=== PATIENT | male | born 1945 | race Caucasian/White ===

== ENCOUNTER → 2018-04-18 | Outpatient (CLI) | payer OTHER, BC | LOC: BHFA 10:30 | PROVIDERS: ATTEND Nurse Practitioner Adult Health | DX: I48.91 Unspecified atrial fibrillation (principal) ==

== ENCOUNTER 2018-04-19 14:39 | Day surgery (SDC) | payer OTHER, BC ==
[2018-04-19] MEDS ORDERED: ATROPINE SULFATE 1 MG/10 ML SYR IVP ONE (14:46)
[2018-04-19] MEDS ORDERED: NS 500 ML IV ONE (14:46)
[2018-04-19] MEDS ORDERED: BENZOCAINE UNIT DOSE SPRAY HURRICAINE MM ONE (14:46)
[2018-04-19] MEDS ORDERED: fentaNYL 100 MCG/2 ML INJ IVP ONE (14:46)
[2018-04-19] MEDS ORDERED: MIDAZOLAM 2 MG/2 ML VIAL IVP ONE (14:46)
[2018-04-19 15:28] LABS: INR 1.22 (0.83-1.16); PROTIME(PATIENT) 15.6 SEC (12.0-15.0)
[2018-04-19] MEDS ORDERED: PROPOFOL 200 MG/20 ML VIAL ONE ×2 (15:41)
[2018-04-19] MEDS ORDERED: LIDOCAINE 2% 2 ML INJ ONE (15:42)
--- NOTE | 2018-04-19 15:59 | PDANEPAE ---
ANE Past Medical History - Cardiovascular History Hx Hypertension: No Hx Arrhythmias: Yes Cardiovascular History Comment: A Fib for many years and has been cardioverted many times. - Pulmonary History Hx COPD: No Hx Asthma/Reactive Airway Disease: No Hx Sleep Apnea: No Pulmonary History Comment: Patient denies CHASIDY but suspectes he has CHASIDY - Neurologic History Hx Cerebrovascular Accident: No Hx Seizures: No - Endocrine History Hx Diabetes: No - Renal History Hx Renal Disorders: No - Liver History Hx Hepatic Disorders: No - Neurological & Psychiatric Hx Hx Neurological and Psychiatric Disorders: No - Cancer History Hx Cancer: No Cancer History Comment: Suspected prostate CA but Bx was benign - GI History Hx Gastrointestinal Disorders: No ANE Review of Systems Review of Systems: ANE Patient History - Allergies Allergies/Adverse Reactions: No Known Allergies Allergy (Unverified 01/01/15 11:08) - Smoking Hx Smoking Status: Never smoked ANE Labs/Vital Signs - Labs Result Diagrams: 04/19/18 15:10 ANE Physical Exam - Airway Neck exam: FROM Mallampati Score: Class 2 Mouth exam: normal dental/mouth exam - Pulmonary Pulmonary: no respiratory distress, no rales or rhonchi, clear to auscultation - Cardiovascular Cardiovascular: no murmur, rub, or gallop, irregularly irregular - ASA Status ASA Status: II ANE Anesthesia Plan Anesthesia Plan: MAC
--- NOTE | 2018-04-19 16:07 | PDHPUP ---
History & Physical Update H&P update statement: This history and physical update is based on an assessment of the patient which was completed after admission or registration (within 24 hours), but prior to the surgery/procedure. H&P update: H&P reviewed & patient examined, no change in patient's condition since H&P completed
--- NOTE | 2018-04-19 16:34 | POSTANESTH ---
Post Anesthetic Evaluation Cardiovascular Status: Normal, Stable Respiratory Status: Normal, Stable Level of Consciousness/Mental Status: Can Participate in Eval Pain Control: Adequate, Prn Tx Ordered Nausea/Vomiting Control: Adequate, Prn Tx Ordered Complications Possibly Related to Anesthesia: None Noted
--- NOTE | 2018-04-19 16:59 | CPR ---
DATE OF PROCEDURE: 04/19/2018 PROCEDURE PERFORMED: Transesophageal echocardiogram guided cardioversion. INDICATION FOR PROCEDURE: Symptomatic atrial fibrillation. BRIEF HPI: The patient is a pleasant 72-year-old gentleman with a known history of paroxysmal atrial fibrillation on rate control and anticoagulation strategy. He recently noticed return of atrial fib rillation while traveling in [place]. He did miss an occasional dose of Eliquis during his travels and subsequently has been arranged today for RACHELE guided cardioversion. PROCEDURE: After informed consent was obtained for RACHELE cardioversion and anesthesia, patient had a b ite block put in place. Propofol was infused. Once appropriate level of sedation was achieved, RACHELE probe was passed without incident. RACHELE probe was used to take images of the left atrial appendage in multiple images, including xPlane imaging. There was no evidence of left atrial appendage thrombus. There was spontaneous echo contrast noted within the left atrial appendage, in left atrium, but no thrombus. Patient subsequently underwent direct current cardioversion with a synchronized biphasic shock of 200 joules. He remained in atrial fibrillation. He required 2 further shocks of biphasic synchronized energy at 205 joules to return to sinus bradycardia at 40 beats per minute. Currently at the time of dictation, he is in sinus bradycardia at 40 beats per minute. He is waking from anesthesia. PLAN: 1. We will continue to monitor patient. 2. Patient remain on current medical therapy. 3. Patient is scheduled for followup with Dr. Faustino Vera. /[id number]/MODL
--- NOTE | 2018-04-19 21:24 | CPEKG ---
Test Reason : OPEN Blood Pressure : / mmHG Vent. Rate : 059 BPM Atrial Rate : 000 BPM P-R Int : 182 ms QRS Dur : 097 ms QT Int : 407 ms P-R-T Axes : 000 -52 017 degrees QTc Int : 404 ms Atrial fibrillation Left anterior fascicular block Confirmed by Fabiano Palm ([id number]) on 04/19/2018 9:23:48 PM Referred By: Confirmed By:Fabiano Palm
--- NOTE | 2018-04-21 07:21 | CPEKG ---
Test Reason : Blood Pressure : / mmHG Vent. Rate : 044 BPM Atrial Rate : 044 BPM P-R Int : 195 ms QRS Dur : 098 ms QT Int : 454 ms P-R-T Axes : 023 -48 001 degrees QTc Int : 389 ms Sinus bradycardia with sinus arrhythmia Left anterior fascicular block Probable anteroseptal infarct, old Confirmed by Fabiano Palm ([id number]) on 04/21/2018 7:21:24 AM Referred By: Confirmed By:Fabiano Palm
== END 2018-04-19 18:33 | disposition home or self-care (01) ==
LOC: FCATH 14:39
PROVIDERS: ATTEND Internal Medicine Cardiovascular Disease
PROC: 5A2204Z Restoration of Cardiac Rhythm, Single (ICD-10-PCS; principal; 2018-04-19)
DX: I48.91 Unspecified atrial fibrillation (principal); I34.0 Nonrheumatic mitral (valve) insufficiency; I10 Essential (primary) hypertension
CPT/HCPCS: J0461; J2704

== ENCOUNTER → 2018-05-31 | Outpatient (CLI) | payer OTHER, BC | LOC: BHFA 16:00 | PROVIDERS: ATTEND Internal Medicine Cardiovascular Disease | DX: I48.91 Unspecified atrial fibrillation (principal) ==

== ENCOUNTER → 2018-06-06 | Outpatient (CLI) | payer OTHER, BC | LOC: BHLMT 14:45 | PROVIDERS: ATTEND Internal Medicine Cardiovascular Disease | DX: I48.91 Unspecified atrial fibrillation (principal); I10 Essential (primary) hypertension | CPT/HCPCS: 93306-PO ==

== ENCOUNTER 2018-08-08 10:48 | Day surgery (SDC) | payer OTHER, BC ==
[2018-08-08] MEDS ORDERED: NS 500 ML IV ONE (10:53)
[2018-08-08] MEDS ORDERED: ATROPINE SULFATE 1 MG/10 ML SYR IVP ONE (10:53)
[2018-08-08] MEDS ORDERED: MIDAZOLAM 2 MG/2 ML VIAL IVP ONE (10:53)
[2018-08-08] MEDS ORDERED: fentaNYL 100 MCG/2 ML INJ IVP ONE (10:53)
--- NOTE | 2018-08-08 11:30 | PDANEPAE ---
ANE History of Present Illness a fib ANE Past Medical History - Cardiovascular History Hx Hypertension: No Hx Arrhythmias: Yes Hx Chest Pain: No Hx Coronary Artery / Peripheral Vascular Disease: No Hx CHF / Valvular Disease: No Hx Palpitations: Yes Cardiovascular History Comment: A Fib for many years and has been cardioverted many times. - Pulmonary History Hx COPD: No Hx Asthma/Reactive Airway Disease: No Hx Recent Upper Respiratory Infection: No Hx Oxygen in Use at Home: No Hx Sleep Apnea: No Pulmonary History Comment: Patient denies CHASIDY but suspectes he has CHASIDY - Neurologic History Hx Cerebrovascular Accident: No Hx Seizures: No Hx Dementia: No - Endocrine History Hx Diabetes: No Hypothyroid: No Hyperthyroid: No Obesity: no - Renal History Hx Renal Disorders: No - Liver History Hx Hepatic Disorders: No - Neurological & Psychiatric Hx Hx Neurological and Psychiatric Disorders: No - Cancer History Hx Cancer: No Cancer History Comment: Suspected prostate CA but Bx was benign - GI History GERD: no Hx Gastrointestinal Disorders: No - Surgical History Prior Surgeries: several previous cardioversions ANE Review of Systems Review of systems is: negative Review of Systems: - Exercise capacity METS (RN): 4 METS ANE Patient History - Allergies Allergies/Adverse Reactions: No Known Allergies Allergy (Unverified 01/01/15 11:08) - Home Medications Home medications: home medication list seen and reviewed Home Medications: Acetaminophen [Tylenol Extra Strength] 1,000 mg PO BID 08/08/18 [Last Taken Unknown] Acyclovir 400 mg PO DAILY 08/08/18 [Last Taken Unknown] Allopurinol [Allopurinol 300 MG (RX)] 300 mg PO DAILY 08/08/18 [Last Taken Unknown] Apixaban [Eliquis] 5 mg PO BID 08/08/18 [Last Taken 08/08/18] Atorvastatin Calcium 80 mg PO DAILY 08/08/18 [Last Taken Unknown] Clopidogrel Bisulfate [Plavix] 75 mg PO DAILY 08/08/18 [Last Taken Unknown] Glucosa Alaniz 2Kcl/Chondroitin Alaniz [Glucosamine Chondroitin Caplet] 1 tab PO BID [Last Taken Unknown] Metoprolol Tartrate 25 mg PO BID 08/08/18 [Last Taken Unknown] - NPO status NPO Status: no food or drink >8 hours - Anes Hx Anes Hx: no prior problems - Smoking Hx Smoking Status: Never smoked Marijuana use: No - Alcohol Use Alcohol Use: Rarely - Family Anes Hx Family Anes Hx: none ANE Labs/Vital Signs - Labs Result Diagrams: 08/08/18 11:00 - Vital Signs Height: 182.88 cm Weight: 83.915 kg ANE Physical Exam - Airway Neck exam: FROM Mallampati Score: Class 2 Mouth exam: normal dental/mouth exam - Pulmonary Pulmonary: no respiratory distress, clear to auscultation - Cardiovascular Cardiovascular: regular rate and rhythym, no murmur, rub, or gallop - ASA Status ASA Status: III ANE Anesthesia Plan Anesthesia Plan: GA with mask Total IV Anesthesia: Yes
[2018-08-08 11:43] LABS: INR 1.26 (0.83-1.16); PROTIME(PATIENT) 15.3 SEC (12.0-15.0)
--- NOTE | 2018-08-08 11:55 | PDGENHP ---
History & Physical Chief Complaint: symptomatic afib Relevant Physical Exam: s1s2 irreg cta ao3 Cardiorespiratory Assessment: for cv
--- NOTE | 2018-08-08 11:55 | PDGENHP ---
History & Physical Chief Complaint: Atrial fibrillation History of Present Illness: Symptomatic atrial fibrillation Relevant Physical Exam: General: A&Ox4, no apparent distress. Respiratory: CTA. Cardiac: Irregularly irregular Cardiorespiratory Assessment: Proceed with cardioversion as planned for today. He is not able to say whether he has missed any doses of his anticoagulant, plan for ARCHELE pre-cardioversion.
[2018-08-08] MEDS ORDERED: PROPOFOL/EMULSION 500 MG/50 ML BOTTLE IV ONE (12:11)
--- NOTE | 2018-08-08 12:47 | PDTEE1 ---
RACHELE Cardioversion Procedure Procedure: electrical cardioversion, transesophageal echo Indications: atrial fibrillation Consent: signed and in chart Anticoagulation: eliquis Procedural Details: Pads were placed in anterior-posterior position. RACHELE probe was advanced and standard images obtained. There is no evidence of left atrial or left atrial appendage thrombus. Synchronized cardioversion attempt #1: 200J Results: normal sinus rhythm Conclusions: successful RACHELE cardioversion (Moderate to severe MR. To assess MR with echo in 3 months if remains in NSR.) Patient Problems: Problems Problem Status Onset Atrial fibrillation Acute
[2018-08-08] MEDS ORDERED: NALOXONE HCL 0.4 MG/ML INJ IVP PRN (13:07)
--- NOTE | 2018-08-09 06:36 | ECHO ---
[email or web address] [address] Main: [phone] Fax: Transesophageal Echocardiography Name: ROBERTO SAGE MR#: [id number] Study Date: 08/08/2018 Study Time: 12:24 PM Date of : 1945 Age: 73 year(s) Height: ( ) Weight: ( ) BSA: Gender: Male Examination: RACHELE Indication: prev cardioversion; r/o clot Image Quality: Adequate Contrast: I.V. dose of agitated saline Requested by: Faustino Vera Heart Rate: Rhythm: BP: / Procedure Staff Transportation Clerk: Kezia Montiel [facility] Reading Physician: Faustino Vera MD Requesting Provider: RACHELE Exam Details Contrast: I.V. dose of agitated saline Measurements: Chambers Valvular Assessment AV/MV Valvular Assessment TV/PV Normal Normal Normal Name Value Range Name Value Range Name Value Range Visual EF: 55 % Additional Measurements: Findings: Left Ventricle: Normal size left ventricle. The ejection fraction is visually estimated to be 55 %. Left Atrium: Left atrial enlargement. An agitated saline study was performed and was negative for intracardiac shunting. Spontaneous contrast in the left atrium. No thrombus is noted in the left atrium. Left Atrial Appendage: No thrombus in left appendage. Spontaneous contrast is present in the left atrial appendage. Right Atrium: Right atrial enlargement. Mitral Valve: Moderate to severe mitral regurgitation. Aortic Valve: The aortic valve is tri-leaflet. Trivial to mild aortic valve regurgitation. Patient: ROBERTO SAGE Study Date: 08/08/2018 Page 1 of 2 12:24 PM Tricuspid Valve: Trivial to mild tricuspid valve regurgitation. Pulmonic Valve: There is no pulmonic regurgitation seen. Pericardium: Trivial pericardial effusion. l1n (No Signature Object) Patient: ROBERTO SAGE Study Date: 08/08/2018 Page 2 of 2 12:24 PM [id number]
--- NOTE | 2018-08-14 16:31 | CPEKG ---
Test Reason : OPEN Blood Pressure : / mmHG Vent. Rate : 058 BPM Atrial Rate : 000 BPM P-R Int : 226 ms QRS Dur : 106 ms QT Int : 450 ms P-R-T Axes : 000 -53 -04 degrees QTc Int : 443 ms Atrial fibrillation Probable inferior infarct, age indeterminate Confirmed by Domenico Miller ([id number]) on 08/14/2018 4:31:14 PM Referred By: Faustino Vera Confirmed By:Domenico Miller
== END 2018-08-08 14:32 | disposition home or self-care (01) ==
LOC: FCATH 10:48
PROVIDERS: ATTEND Internal Medicine Cardiovascular Disease
PROC: B245ZZ4 Ultrasonography of Left Heart, Transesophageal (ICD-10-PCS; principal; 2018-08-08)
PROC: 5A2204Z Restoration of Cardiac Rhythm, Single (ICD-10-PCS; principal; 2018-08-08)
DX: I48.1 Persistent atrial fibrillation (principal); I25.10 Atherosclerotic heart disease of native coronary artery without angina pectoris; I10 Essential (primary) hypertension; Z79.01 Long term (current) use of anticoagulants
CPT/HCPCS: J0461; J2704